=== PATIENT | female | born 1945 | race Caucasian/White ===

== ENCOUNTER → 2018-08-06 15:03 | Outpatient (CLI) | payer MEDICARE, SELFPAY ==
--- NOTE | 2018-08-06 15:13 | XR_ITS ---
EXAM: XR lumbar spine min 4V HISTORY: Low back pain following injury ITS.REASON: LOW BACK PAIN ORDERING PHYSICIAN: Palmer Calderon MD PATIENT AGE: 73 years COMPARISON: None FINDINGS: There are no previous exams available for comparison. There are wedge compression changes involving T12, L1, and L4. The changes at T12-L1 could be either chronic or acute. The changes at L4 appear acute with loss of height centrally and anteriorly of at least 40 %. Cortical irregularity involving the superior endplate of L4 There is mild anterolisthesis of L4 on L5 of 3 mm. No obvious retropulsed fragments. Suggest MRI for further evaluation. IMPRESSION: 1. Acute compression fracture of L4 with loss of height of approximately 40% 2. Mild wedge compression changes at T12 and L1 which could be either chronic or acute. Suggest MRI for further evaluation
== END ==
PROVIDERS: PCP Family Medicine; Visit Provider Family Medicine
DX: M54.5 Low back pain (principal)
CPT/HCPCS: 72110

== ENCOUNTER → 2018-08-12 14:51 | Outpatient (CLI) | payer MEDICARE, SELFPAY ==
--- NOTE | 2018-08-12 14:54 | MR_ITS ---
MR lumbar spine wo con, MR 3-d myelogram/MRCP Ordering Physician: Palmer Calderon MD Patient Age: 73 years: Female HISTORY: ITS.REASON: CLOSED COMPRESSION FX OF FOURTH VERTEBRA Compression fracture fourth lumbar vertebra. Patient fell one week ago and has had low back pain since. Low back pain worst on right. . pain at calf and right leg Sagittal STIR, T1, T2, axial T1 and T2. On 1.5T Siemens wide bore MRI. 3-D MR myelogram image set obtained & performed on MRI workstation. Additional sagittal thin section T2 weighted dataset obtained from this latter acquisition as well (---76 CPT) COMPARISON :Plain films lumbar spine 08/06/2018 FINDINGS . Recent COMPRESSION FRACTURES evident.: Most pronounced L4; and less pronounced L1 L4 vertebra: Most severe compression fracture is seen at L4 vertebral. . Prominent compression, involving superior endplate with 40 -45% loss of height and mild wedging.. Increased bone signal most evident at midportion of the vertebral body reflects the recent compression fracture injury with bone edema. There is with [id number] retropulsion posteriorly with posterior bulging of this expanded vertebral body into the spinal canal fracture yielding fairly severe spinal stenosis at at L3/4 level as well as and superior L4 level. L1 vertebra: Also recent compression fracture L1 although less pronounced 25% loss of height. Compression injury here seems to involve superior as well as inferior endplate of with mild increased signal throughout the vertebral body reflecting the recent compression fracture. Bone edema. No significant retropulsion. Only very slight generous posterior superior contour of this vertebral body. There is a disc space narrowing and diffuse spondylosis and disc bulge at L1/2Level which does of face anterior thecal sac slightly L2 vertebra: Note Subtle increased signal beneath the superior right margin of of L3 vertebra;.. Scant if any loss of height evident here.. This Increased signal here could reflect extremely minor compression injury and bone contusion however the marked disc space narrowing at L1/2 could generate these reactive endplate changes of similar character. The T12 compression fracture and wedging more likely old. Roughly 25% loss of height here with superior and inferior endplate cavity and Schmorl's nodes. No abnormal bone signal C2 to suggest recent injury. -------- Degenerative disc changes now discussed below at each level: .L5/S1 degenerative disc space narrowing most pronounced to the left.Mild reactive endplate changes are seen about this narrowed disc. Mild diffuse bulge, with minor posterior ridging. Features most notable at the at foramen. This along with ligamentum flavum & facet hypertrophy yields mild bilateral recess encroachment and foraminal encroachment at entry of the foramen. L4/5. Only slight disc space narrowing posteriorly [id number] diffuse disc bulge... However Fairly severe central canal stenosis-mainly due is to the the exuberant ligamentum flavum & facet hypertrophy...... Bilateral recess and foraminal encroachment most pronounced to the left. L4. Prominent Vertebral body compression fracture with some retropulsion is been discussed this level, yielding spinal stenosis posterior to superior L4 L3/4.. Degenerative disc space narrowing diffuse generous disc bulge most evident towards the left foramen. Yields left foraminal encroachment..... However we again see prominent ligamentum flavum hypertrophy ( particularly on the left) along with facet hypertrophy which also significantly narrow the spinal with prominent central canal stenosis. Bilateral foraminal encroachment most evident the left . L2/3. Disc intact with mild disc bulge most evident towards the left foramen. Mild foraminal en
== END ==
PROVIDERS: PCP Family Medicine; Visit Provider Family Medicine
DX: S32.040A Wedge compression fracture of fourth lumbar vertebra, initial encounter for closed fracture (principal)
CPT/HCPCS: 72148; 76376

== ENCOUNTER → 2021-10-15 14:16 | Outpatient (POV) | payer MEDICARE, SELFPAY | PROVIDERS: Visit Provider Dermatology | DX: Z00.00 Encounter for general adult medical examination without abnormal findings (principal) ==

== ENCOUNTER 2023-09-10 08:00 | Outpatient (RCR) | payer MEDICARE, SELFPAY ==
--- NOTE | 2022-12-17 13:06 | HMH.PTOPWND ---
Rehab Outpt Wound Evaluation Rehab OP Wound Evaluation Start: 12/17/22 12:44 Freq: Status: Active Protocol: Document 12/17/22 12:45 JOEL (Rec: 12/17/22 13:06 [email or web address] [id number]) E-signed By Nikolai Ortega, PT Subjective/History History History This is the initial PT eval for Trinity Aguiar, 77 yowf who presents with R medial ankle wounds x ~ 10 mos overall. She reports she had laser ablation procedure of the greater saphenous vein to the same LE. She also reports a total of 5 different amniotic graft procedures performed. She reports pain is much worse at night and she has significant sensitivity in the shyanne-wound skin. 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 Subjective Subjective Current pain 0/10, at worst ( night) 10/10. 2/4 TTP noted to shyanne-wound skin. Moderate shyanne-wound erythema noted. Some Mild lipodermatosclerosis noted. Wound Eval Wound Right Lower Medial Ankle Wound Type Stasis Ulcer Is This a Chronic Wound Yes Wound Length (cm) 3.1 Wound Width (cm) 2.2 Wound Depth (cm) 0.1 Wound Bed Appearance Beefy Red,Yellow Percentage Granulated (%) 75 Percentage of Slough (%) 25 Wound Margins Description Indistinct Surrounding Tissue Appearance Welda Edema Type Pitting Edema Degree 1+ Query Text:1+ Trace, Barely Detectable, Rebound 15-30 seconds 2+ Moderate, Slight Indentation, Rebound 10-20 seconds 3+ Deep, Deeper Indentation, Rebound > 30 seconds 4+ Very Deep, Rebound > 60 seconds Drainage Description Serosanguineous Drainage Amount Small Primary Dressing collagen Comment therahoney gel, puracol Wound Debridement Method Sharps,Gauze Wound Debridement Amount of Tissue Minimal Removed Dressing Change Patient Tolerance Tolerated Well Right Upper Medial Ankle Wound Type Stasis Ulcer Is This a Chronic Wound Yes Wound Length (cm) 2.1 Wound Width (cm) 2.0 Wound Depth (cm) 0.1 Wound Bed Appearance Beefy Red,Yellow Percentage Granulated (%) 75 Percentage of Slough (%) 25 Wound Margins Description Indistinct Edema Type Pitting Edema Degree 1+ Query Text:1+ Trace, Barely Detectable, Rebound 15-30 seconds 2+ Moderate, Slight Indentation, Rebound 10-20 seconds 3+ Deep, Deeper Indentation, Rebound > 30 seconds 4+ Very Deep, Rebound > 60 seconds Drainage Description Serosanguineous Drainage Amount Small Primary Dressing collagen Comment therahoney gel, puracol Wound Secondary Dressing Type Unna Boot Wound Debridement Method Sharps,Gauze Wound Debridement Amount of Tissue Minimal Removed Dressing Change Patient Tolerance Tolerated Well Wound Problems/Impairments Impairments Problems/Impairmments Palpation Tenderness,Impaired Walking,Impaired Standing, Impaired Recreational Activities,Increased Edema, Lymphedema Present,Wound Care Needs,Subjective C/O Pain, Impaired Self Care/Self Management Prognosis Rehab Potential Good Clinical Impression Consistent with Diagnosis Yes Short Term Goals Number of Weeks 2 Decreased Palpation Tenderness Yes: 05/14 R medial ankle Decrease Wound Area Yes: by 25% Decrease Subjective C/O Pain Yes: 11/17 at worst Residential Goals Number of Weeks 4 Decreased Palpation Tenderness Yes: 0 R medial ankle Return to Recreational Activities Yes Decrease Edema Yes: no pitting Decrease Wound Area Yes: by 75% Decrease Subjective C/O Pain Yes: 08/18 at worst Patient to be Ind w/ HEP Yes Patient to be Ind w/ Home Wound Care/ Yes Dressing Changes Outpatient Therapy Plan of Care Treatment Plan May Include Therapeutic Exercise Including Home Yes Exercise Program Manual Therapy Techniques Yes Neuromuscular Re-education Yes Therapeutic Activities to Return to Yes Previous Functional/Work Level ADL/Self Care Education Yes Orthotics/Bracing/Splinting Yes Manual Lymphatic Drainage Yes Wound Care Yes Eval/Re-Eval Yes Frequency Times per week 2 Duration Number of Weeks 4 Addendums This patient is a candidate for social No or vocational rehab? Patient/Guardian verbally acknowledges Yes understanding of treatment program and consents to further treatment? Patient/Guardian verbally acknowledges Yes understanding of diagnosis, prognosis and goals for treatment? G -code Required No Eval Complexity PT Charges 86363 - High Complexity PHYSICIAN CERTIFICATION: I certify the specified therapy services for Trinity Aguiar are required, authorized, and reviewed every 30 days.
--- NOTE | 2023-01-14 13:45 | HMH.RHREAS ---
Rehab Reassessment Rehab OP Re-assessment Start: 12/17/22 12:44 Freq: Status: Active Protocol: Document 01/14/23 13:39 [email or web address] (Rec: 01/14/23 13:45 PHORSAILAJA [id number]) E-signed By Nikolai Ortega, PT Rehab Re-assessment Subjective Subjective Pt reports much less tenderness to palpation in the shyanne-wound skin. Pain this date minimal, at worst 5/10. Objective Objective Notes R LE wounds: Lower medial ankle wound: L= 1 .6 cm, W= 0.9 cm, D= 0.1 cm. Upper medial ankle wound: L= 1 .6 cm, W= 1.1 cm, D= 0.1 cm. No pitting edema noted at this time. Minimal shyanne-wound erythema noted. 1/4 TTP to shyanne-wound skin of lower R ankle wound. Decreased total wound surface area by 69% at this time. Assessment Progress Assessment Progressing as Expected Assessment Notes Pt has shown significant improvement in R medial LE wounds at this time with reduced slough and steady healing tissue. She continues to need skilled intervention to return to prior level of function. Patient goals met ST,2,3 LT Goals Not Met LT,2,4,5,6,7 Revised Goals none Plan Plan Continue per initial POC. Frequency of Therapy 2 x/wk Duration of therapy 4 wks Time and Billing Re-Eval Time 13 Re-Eval Billing Units 1 PHYSICIAN CERTIFICATION: I certify the specified therapy services for Trinity Aguiar are required, authorized, and reviewed every 30 days.
--- NOTE | 2023-02-18 08:30 | HMH.RHREAS ---
Rehab Reassessment Rehab OP Re-assessment Start: 12/17/22 12:44 Freq: Status: Active Protocol: Document 02/18/23 08:27 JOEL (Rec: 02/18/23 08:30 JOEL [id number]) E-signed By Nikolai Ortega, PT Rehab Re-assessment Subjective Subjective Pt reports, My leg hurts when I'm up on it a lot, but I had to mow yesterday and I have a lot of yard work to do. Objective Objective Notes R LE wounds: Lower medial ankle wound: L= 2 .1 cm, W= 1.4 cm, D= 0.2 cm. Upper medial ankle wound: L= 2 .0 cm, W= 1.4 cm, D= 0.2 cm. Assessment Progress Assessment Progressing as Expected Assessment Notes Overall wound area has slightly increased since last reassessment, but granulation tissue has improved and overall wound health is increased. She continues to need skilled intervention to return to prior level of function. Patient goals met ST,2,3 LT Goals Not Met LT,2,4,5,6,7 Plan Plan Continue per initial POC. Frequency of Therapy 1-2 x/wk Duration of therapy 4 wks Time and Billing Re-Eval Time 14 Re-Eval Billing Units 1 PHYSICIAN CERTIFICATION: I certify the specified therapy services for Trinity Aguiar are required, authorized, and reviewed every 30 days.
--- NOTE | 2023-03-18 10:24 | HMH.RHREAS ---
Rehab Reassessment Rehab OP Re-assessment Start: 12/17/22 12:44 Freq: Status: Active Protocol: Document 03/18/23 10:22 JOEL (Rec: 03/18/23 10:23 JOEL [id number]) E-signed By Nikolai Ortega, PT Rehab Re-assessment Subjective Subjective Pt reports no new c/o pain or discomfort this date. I think it's getting there. Objective Objective Notes Inferior R medial ankle wound appears to be closed at this point, but will continue to monitor. Superior R medial ankle wound L= 1.7 cm, W= 1.1 cm, D= 0.1 cm. Minimal drainage remains, continues to heal steadily. Assessment Progress Assessment Progressing as Expected Assessment Notes Overall wound area has significantly decreased since last reassessment. She continues to need skilled intervention to return to prior level of function. Patient goals met ST,2,3 LT Goals Not Met LT,2,4,5,6,7 Revised Goals none Plan Plan Continue per initial POC. Frequency of Therapy 1-2 x/wk Duration of therapy 4 wks Time and Billing Re-Eval Time 13 Re-Eval Billing Units 1 PHYSICIAN CERTIFICATION: I certify the specified therapy services for Trinity Aguiar are required, authorized, and reviewed every 30 days.
--- NOTE | 2023-05-13 13:14 | HMH.RHREAS ---
Rehab Reassessment Rehab OP Re-assessment Start: 12/17/22 12:44 Freq: Status: Active Protocol: Document 05/13/23 13:11 JOEL (Rec: 05/13/23 13:14 PHOBHAVNA [id number]) E-signed By Nikolai Ortega, PT Rehab Re-assessment Subjective Subjective Pt reports, I was doing really well, but then It started to get bad again about a week ago and now that place at the top of my ankle has opened up agaian. Objective Objective Notes Inferior R medial ankle wound remains closed at this point, but will continue to monitor. Superior R medial ankle wound L= 0.9 cm, W= 1.3 cm, D= 0.1 cm. Minimal drainage remains. Assessment Progress Assessment Slower Than Expected Assessment Notes Overall wound area has significantly decreased since last treatment, but it was completely epithelialized for 1-2 weeks prior to this date. She continues to need skilled intervention to return to prior level of function. Patient goals met ST,2,3 LT Goals Not Met LT,2,4,5,6,7 Revised Goals none Plan Plan Continue per initial POC. Frequency of Therapy 1-2 x/wk Duration of therapy 4 wks Time and Billing Re-Eval Time 14 Re-Eval Billing Units 1 PHYSICIAN CERTIFICATION: I certify the specified therapy services for Trinity Aguiar are required, authorized, and reviewed every 30 days.
--- NOTE | 2023-06-18 11:40 | HMH.RHREAS ---
Rehab Reassessment Rehab OP Re-assessment Start: 12/17/22 12:44 Freq: Status: Active Protocol: Document 06/18/23 11:36 JOEL (Rec: 06/18/23 11:39 PHORSAILAJA [id number]) E-signed By Nikolai Ortega, PT Rehab Re-assessment Subjective Subjective Pt reports, It's not draining as much as it was and it doesn't hurt as bad. Objective Objective Notes Superior R medial ankle wound L= 2.0 cm, W= 2.1 cm, D= 0.1 cm. Minimal drainage remains. Granulation tissue throughout the wound bed. Assessment Progress Assessment Progressing as Expected Assessment Notes Overall wound area has significantly decreased since last treatment, but it was completely epithelialized for 1-2 weeks prior to this date. She continues to need skilled intervention to return to prior level of function. Patient goals met ST,2,3 LT Goals Not Met LT,2,4,5,6,7 Plan Plan Continue per initial POC. Frequency of Therapy 1-2 x/wk Duration of therapy 4 wks Time and Billing Re-Eval Time 12 Re-Eval Billing Units 1 PHYSICIAN CERTIFICATION: I certify the specified therapy services for Trinity Aguiar are required, authorized, and reviewed every 30 days.
--- NOTE | 2023-07-23 08:51 | HMH.RHREAS ---
Rehab Reassessment Rehab OP Re-assessment Start: 12/17/22 12:44 Freq: Status: Active Protocol: Document 07/23/23 08:48 [email or web address] (Rec: 07/23/23 08:50 JOEL [id number]) E-signed By Nikolai Ortega, PT Rehab Re-assessment Subjective Subjective Pt reports no new c/o this am. That stuff you put around that wound was really hard to get off. Objective Objective Notes Superior R medial ankle wound L= 2.8 cm, W= 2.8 cm, D= 0.1 cm. Moderate serrsanguineous drainage remains. Granulation tissue throughout the wound bed. Assessment Progress Assessment Progressing as Expected Assessment Notes Wound was increasing in drainage and overall surface area, but appears to be improving agaon. Pt edema slightly increased in the R LE this date. She continues to need skilled intervention to return to prior level of function. Patient goals met ST,2,3 LT Goals Not Met LT,2,4,5,6,7 Revised Goals none Plan Plan Continue per initial POC. Frequency of Therapy 1-2 x/wk Duration of therapy 4 wks Time and Billing Re-Eval Time 11 Re-Eval Billing Units 0 PHYSICIAN CERTIFICATION: I certify the specified therapy services for Trinity gAuiar are required, authorized, and reviewed every 30 days.
--- NOTE | 2023-08-20 08:40 | HMH.RHREAS ---
Rehab Reassessment Rehab OP Re-assessment Start: 12/17/22 12:44 Freq: Status: Active Protocol: Document 08/20/23 08:37 JOEL (Rec: 08/20/23 08:39 JOEL [id number]) E-signed By Nikolai Ortega, PT Rehab Re-assessment Subjective Subjective Pt reports increased itching and one episode of pain that lasted only several seconds. It felt like something was biting me, but I know it wasn' t. Objective Objective Notes Superior R medial ankle wound L= 1.8 cm, W= 1.6 cm, D= 0.1 cm. Minimal serrsanguineous drainage remains. Granulation tissue throughout the wound bed, increased epithelialization. Assessment Progress Assessment Progressing as Expected Assessment Notes Wound has closed total surface area considerably, but remains open in small areas. She continues to need skilled intervention to return to prior level of function. Patient goals met ST,2,3 LT Goals Not Met LT,2,4,5,6,7 Revised Goals none Plan Plan Continue per initial POC. Frequency of Therapy 1-2 x/wk Duration of therapy 4 wks Time and Billing Re-Eval Time 10 Re-Eval Billing Units 0 PHYSICIAN CERTIFICATION: I certify the specified therapy services for Trinity Aguiar are required, authorized, and reviewed every 30 days.
== END 2023-09-10 08:05 | disposition home or self-care (01) ==
LOC: PT 08:00
PROVIDERS: PCP Nurse Practitioner Family; Visit Provider Nurse Practitioner Family
DX: L97.311 Non-pressure chronic ulcer of right ankle limited to breakdown of skin (principal)
CPT/HCPCS: 97140; 97163; 97164; 97597

== ENCOUNTER 2023-12-22 12:52 | Outpatient (CLI) | payer MEDICARE, SELFPAY ==
--- NOTE | 2023-12-22 12:57 | CT_ITS ---
FINAL REPORT TECHNIQUE: Multiple axial CT sections were performed from the foramen magnum to the vertex. Coronal reformatted images were also obtained. Precontrast and postcontrast injection images were obtained. This study was performed with technique to keep radiation doses as low as reasonably achievable, (ALARA). Individualized dose reduction techniques using automated exposure control or adjustment of mA and/or kV according to the patient size were employed. CLINICAL HISTORY: MEMORY LOSS FINDINGS: There is atrophy with moderate to severe chronic ischemic changes. The ventricles are normal in size. There is no evidence of hemorrhage. No masses are identified. No extra-axial fluid collection is seen. The sinuses are normal. No osseous abnormality is seen on the bone window images. Postcontrast images demonstrate no abnormal enhancement. IMPRESSION: Atrophy and chronic ischemic changes. No acute intracranial abnormality or abnormal contrast enhancement. Reviewed, Interpreted and Dictated by Ace Espinal III, MD Transcribed by Lakesha Painter Authenticated and [facility]
[2023-12-22 13:18] LABS: Blood Urea Nitrogen 28 mg/dl (7-17); Estimated Glomerular Filt Rate 54 ml/min (>60); GFR (African American) 65 ML/MIN (>60)
[2023-12-22] MEDS: SODIUM CHLORIDE 0.9% 10ML SYR (RAD ONLY) 10 ML IV (13:42)
[2023-12-22] MEDS: IOPAMIDOL-300 (61%) 100ML VIAL 100 ML IV (13:42)
== END 2023-12-22 23:59 | disposition home or self-care (01) ==
LOC: RAD 12:53
PROVIDERS: PCP Nurse Practitioner; Visit Provider Nurse Practitioner
DX: R41.3 Other amnesia (principal)
CPT/HCPCS: 36415; 70470; 82565; 84520; Q9967